=== PATIENT | male | born 1990 | race Asian ===

== ENCOUNTER 2017-03-29 07:50 | Emergency (ER) | payer BC ==
[~2017-03-29] VITALS: Ht 182.9 cm; Wt 72.7 kg
[~2017-03-29 07:50] MED LIST: EXCEDRIN1 TAB PO; MAXALT5 MG PO; REGLAN 10MG10 MG/TAB PO; ULTRAM 50MG TAB50 MG PO
[2017-03-29 07:52] VITALS: BP 148/84; PULSE 81; TEMP 98.1
[2017-03-29] MEDS ORDERED: NORCO 325 MG-7.1 TAB PO (08:45)
[2017-03-29] MEDS ORDERED: AMOXICILLIN 50500 MG PO (08:45)
== END 2017-03-29 09:18 | disposition home or self-care (01) ==
LOC: COL.ER 07:50
DX: K02.9 Dental caries, unspecified (principal); G43.909 Migraine, unspecified, not intractable, without status migrainosus; Z87.891 Personal history of nicotine dependence